=== PATIENT | male | born 1970 | race Two or more races ===

== ENCOUNTER 2018-02-24 03:29 | Emergency (ER) | payer SELFPAY ==
[~2018-02-24] VITALS: Ht 172.7 cm; Wt 80.7 kg
[2018-02-24] MEDS ORDERED: cefTRIAXone 1 GM in NS 55 ML IVPB ONE (03:45)
[2018-02-24] MEDS ORDERED: Bactrim-DS 1 tab ORAL ONE (03:45)
--- NOTE | 2018-02-24 03:50 | Emergency Room Report ---
History of Present Illness General Chief Complaint: Lower Extremity Injury Source: Patient Present Illness HPI Patient presents with complaints of swelling and redness to the left lower leg He reports that about a week ago he felt a stinging and when he slapped his leg he had noticed a red susie Feels that there was likely insect bite Since then the area has continued to increase in size increased redness and there is also discharged from the region now Denies any chest pain or shortness of breath denies any fevers denies any neck pain or photophobia Allergies: Coded Allergies: No Known Allergies (Unverified , 02/24/18) Patient History Past Medical History: see triage record Pertinent Family History: none Reviewed Nursing Documentation: PMH: Agreed; PSxH: Agreed Nursing Documentation-PMH Past Medical History: No Stated History Review of Systems All Other Systems: negative except mentioned in HPI Physical Exam Vital Signs Date Time Temp Pulse Resp B/P (MAP) Pulse Ox O2 Delivery O2 Flow Rate FiO2 02/24/18 03:33 97.5 102 22 124/76 100 Room Air 97.5 Sp02 EP Interpretation: reviewed, normal General Appearance: well appearing, no apparent distress Head: normocephalic, atraumatic Eyes: bilateral eye PERRL, bilateral eye EOMI ENT: normal pharynx Neck: full range of motion, supple Respiratory: lungs clear Cardiovascular #1: regular rate, rhythm Gastrointestinal: non tender Musculoskeletal: swelling - Swelling noted to the left lower extremity below the knee, there is a region of erythema as well in the mid proximal tibial region with open wound and drainage Neurologic: alert, oriented x3, responsive Skin: other - As above Lymphatic: no adenopathy Medical Decision Making Diagnostic Impression: Primary Impression: Cellulitis ER Course Given the patient's exam and findings IV is established baseline blood work is obtained and patient further hydrated Antibiotics are provided Patient's white blood cell count is mildly elevated consistent with the cellulitis clinically There is no signs of any compartment syndrome at this time or any obvious abscess Patient will have conservative outpatient trial and requires close outpatient follow-up Labs Test 02/24/18 03:50 White Blood Count 13.8 K/UL (4.8-10.8) Red Blood Count 5.27 M/UL (4.70-6.10) Hemoglobin 16.0 G/DL (14.2-18.0) Hematocrit 46.2 % (42.0-52.0) Mean Corpuscular Volume 88 FL (80-99) Mean Corpuscular Hemoglobin 30.4 PG (27.0-31.0) Mean Corpuscular Hemoglobin Concent 34.6 G/DL (32.0-36.0) Red Cell Distribution Width 10.8 % (11.6-14.8) Platelet Count 337 K/UL (150-450) Mean Platelet Volume 6.3 FL (6.5-10.1) Neutrophils (%) (Auto) 68.3 % (45.0-75.0) Lymphocytes (%) (Auto) 16.9 % (20.0-45.0) Monocytes (%) (Auto) 11.4 % (1.0-10.0) Eosinophils (%) (Auto) 2.7 % (0.0-3.0) Basophils (%) (Auto) 0.7 % (0.0-2.0) Sodium Level 138 MMOL/L (136-145) Potassium Level 4.4 MMOL/L (3.5-5.1) Chloride Level 100 MMOL/L (98-107) Carbon Dioxide Level 34 MMOL/L (21-32) Anion Gap 4 mmol/L (5-15) Blood Urea Nitrogen 15 mg/dL (7-18) Creatinine 1.0 MG/DL (0.55-1.30) Estimat Glomerular Filtration Rate > 60 mL/min (>60) Glucose Level 109 MG/DL (74-106) Calcium Level 8.8 MG/DL (8.5-10.1) Last Vital Signs Date Time Temp Pulse Resp B/P (MAP) Pulse Ox O2 Delivery O2 Flow Rate FiO2 02/24/18 03:33 97.5 102 22 124/76 100 Room Air 97.5 Status: improved Disposition: HOME, SELF-CARE Condition: Improved Scripts Ibuprofen* (MOTRIN*) 600 Mg Tablet 600 MG ORAL Q8H PRN for For Pain, #20 TAB 0 Refills Prov: Kunal Rodriges DO 02/24/18 Trimethoprim/Sulfamethoxazole 160/800* (BACTRIM DS TABLET*) 1 Each Tablet 1 TAB ORAL Q12H, #20 TAB 0 Refills Prov: Kunal Rodriges DO 02/24/18 Cephalexin* (KEFLEX*) 500 Mg Capsule 500 MG ORAL EVERY 6 HOURS for 10 Days, CAP Prov: Kunal Rodriges DO 02/24/18 Referrals: NOT CHOSEN IPA/MD,REFERRING (PCP) Additional Instructions: Patient is provided with the discharge instructions notified to follow up with primary doctor in the next 2-3 days otherwise return to the er with any worsening symptoms. Please note that this report is being documented using [employer] technology. This can lead to erroneous entry secondary to incorrect interpretation by the dictating instrument. Kunal Rodriges DO Feb 24, 2018 03:49
[2018-02-24 04:00] LABS: BASOPHILS % (AUTO) 0.7 % (0.0-2.0); EOSINOPHILS % (AUTO) 2.7 % (0.0-3.0); HEMATOCRIT 46.2 % (42.0-52.0); LYMPHOCYTES % (AUTO) 16.9 % (20.0-45.0); MEAN CORPUSCULAR VOLUME 88 FL (80-99); MONOCYTES % (AUTO) 11.4 % (1.0-10.0); NEUTROPHILS % (AUTO) 68.3 % (45.0-75.0); PLATELET COUNT 337 K/UL (150-450); RED BLOOD COUNT 5.27 M/UL (4.70-6.10); RED CELL DISTRIBUTION WIDTH 10.8 % (11.6-14.8); WHITE BLOOD COUNT 13.8 K/UL (4.8-10.8)
[2018-02-24 04:24] LABS: ANION GAP 4 mmol/L (5-15); BLOOD UREA NITROGEN 15 mg/dL (7-18); CALCIUM 8.8 MG/DL (8.5-10.1); CARBON DIOXIDE 34 MMOL/L (21-32); CHLORIDE 100 MMOL/L (98-107); POTASSIUM 4.4 MMOL/L (3.5-5.1); SODIUM 138 MMOL/L (136-145)
[2018-02-24] MEDS ORDERED: Ketorolac 30mg Inj IV ONE (04:45)
[2018-02-24] MEDS ORDERED: BACTRIM DS TAB1 EAC1 ORAL (05:46)
[2018-02-24] MEDS ORDERED: IBUPROFEN600 MG ORAL (05:46)
[2018-02-24] MEDS ORDERED: CEPHALEXIN500 MG ORAL (05:46)
[2018-02-24 06:03] VITALS: BP 128/79
== END 2018-02-24 06:06 | disposition home or self-care (01) ==
LOC: EMR 03:47
DX: L03.116 Cellulitis of left lower limb (principal)
CPT/HCPCS: 36415; 80048; 85025; 96361; 96365; 96375; 99284; J0696; J1885

== ENCOUNTER 2020-05-24 12:14 | Emergency (ER) | payer SELFPAY ==
[~2020-05-24] VITALS: Ht 170.2 cm; Wt 78.5 kg
[~2020-05-24 12:14] MED LIST: BACTRIM DS TAB1 EAC1 ORAL; CEPHALEXIN500 MG ORAL; IBUPROFEN600 MG ORAL
--- NOTE | 2020-05-24 12:28 | NUR ---
ED Nurse Note: Patient walked in to ER due to dog bite, that happened 2 days ago. Per patient he does not know the bench shear operator of that dog, he is a homless hafsa. Patient presented with old dry bloody wound on his right upper leg. Patient AAO x4, VSS at this time.
[2020-05-24 12:30] VITALS: BP 121/74
[2020-05-24] MEDS ORDERED: AUGMENTIN 875-1 EAC1 ORAL (12:40)
--- NOTE | 2020-05-24 12:42 | Emergency Room Report ---
History of Present Illness General Chief Complaint: Animal Bite Source: Patient Present Illness HPI Disclaimer: Please note that this report is being documented using [employer] technology. This can lead to erroneous entry secondary to incorrect interpretation by the dictating instrument. HPI: 49-year-old male presents for evaluation of dog bite. He states 2 days ago he was walking down the street chatting with a person who lives in her car when he was attacked by their dog. Was bitten on the right thigh and abrasions to the lower extremities bilaterally. The patient states the class 1 owner operator of the dog reported his vaccinations were up-to-date. Patient cleaned the wounds with peroxide and applied bandages. This occurred 2 days ago. No further bleeding. He states he is healing well. Came in for antibiotics. 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 EOMI. Resp: Normal work of breathing Skin: There is a healing abrasion over the lateral aspect of the right thigh. No puncture wound. Multiple superficial scratches over the lower extremities. No lacerations for closure. MSK: Normal tone and bulk. Moving all extremities. No obvious deformity. Neuro: Awake and alert. Mentating appropriately Medical Decision Making Diagnostic Impression: Primary Impression: Dog bite ER Course 49-year-old male presenting for evaluation of dog bite occurring 2 days ago. The vaccination status of the dog was reportedly up-to-date however this is unclear. Will refer to public health department. Will start on Augmentin. Wounds appear to be healing there is no need for closure. Discussed wound care and need for reevaluation. Discharged home. Last Vital Signs Date Time Temp Pulse Resp B/P (MAP) Pulse Ox O2 Delivery O2 Flow Rate FiO2 05/24/20 12:22 98.1 82 121/74 (90) Disposition: HOME, SELF-CARE Condition: Stable Scripts Amoxicillin/Potassium Clav 875-125* (AUGMENTIN 875-125 TABLET*) 1 Each Tablet 1 TAB ORAL TWICE A DAY for 7 Days, #14 TAB Prov: Romero Schneider MD 05/24/20 Referrals: [facility]. Patient Instructions: Animal Bite Additional Instructions: Follow-up with local health department to discuss rabies vaccination. Please follow-up with your primary care doctor in the next 1 to 3 days to discuss this emergency department visit and for reevaluation. If you have any new or worsening symptoms please return to the emergency department for reevaluation. Please note that this report is being documented using [employer] technology. This can lead to erroneous entry secondary to incorrect interpretation by the dictating instrument. Romero Schneider MD May 24, 2020 12:42
[2020-05-24 12:46] VITALS: BP 121/74
--- NOTE | 2020-05-24 12:46 | NUR ---
ED Nurse Note: Pt cleared by health care Provider for discharge. DC instructions/prescription was given and explained to pt and verbalized understanding of teachings. All medical deviecs such as ID band removed. Pt is AAO x4, ambulatory and left with all personal belongings.
== END 2020-05-24 12:46 | disposition home or self-care (01) ==
LOC: EMR 12:30
DX: S71.151A Open bite, right thigh, initial encounter (principal); W56.51XA Bitten by other fish, initial encounter; Y93.01 Activity, walking, marching and hiking; Y92.89 Other specified places as the place of occurrence of the external cause
CPT/HCPCS: 99282